=== PATIENT | male | born 1980 | race Caucasian/White ===

== ENCOUNTER 2018-12-15 04:01 | Emergency (ER) | payer BC, OTHER ==
[~2018-12-15] VITALS: Ht 177.8 cm; Wt 104.5 kg
[~2018-12-15 04:01] MED LIST: PERCOCET OR; TYLE325T5 PO; ULTR50TA PO
[2018-12-15] MEDS ORDERED: IBUPROFEN 800 MG TAB PO ONE (05:15)
[2018-12-15 06:02] LABS: INFLUENZA A AMPLIFICATION NEGATIVE (NEGATIVE); INFLUENZA B AMPLIFICATION NEGATIVE (NEGATIVE)
[2018-12-15 06:51] VITALS: BP 133/60
[2018-12-15] MEDS ORDERED: FLON1SPR NARES (06:53)
[2018-12-15] MEDS ORDERED: CHERSYP3 PO (06:53)
[2018-12-15] MEDS ORDERED: TESS100C PO (06:53)
== END 2018-12-15 07:03 | disposition home or self-care (01) ==
LOC: M ED 04:01
DX: J06.9 Acute upper respiratory infection, unspecified (principal); R50.9 Fever, unspecified; R00.0 Tachycardia, unspecified